=== PATIENT | female | born 1955 | race Caucasian/White ===

== ENCOUNTER 2017-03-23 17:17 | Emergency (ER) | payer OTHER ==
[~2017-03-23] VITALS: Ht 149.9 cm; Wt 54.4 kg
[2017-03-23 18:16] LABS: ABSOLUTE BASOPHIL COUNT 0 /CUMM (0.0-0.2); ABSOLUTE EOSINOPHIL COUNT 0.1 /CUMM (0.0-0.7); ABSOLUTE GRANULOCYTE CT 4.6 /CUMM (1.4-6.5); ABSOLUTE LYMPH COUNT 1.4 /CUMM (1.2-3.4); ABSOLUTE MONOCYTE COUNT 0.5 /CUMM (0.10-0.60); BASOPHIL % 0.6 % (0.0-2.0); EOSINOPHIL % 2.2 % (0-5); GRANULOCYTE % 69.7 % (42.2-75.2); HEMATOCRIT 37.5 % (37-47); MEAN CORPUSCULAR HGB 28.9 PG (27.0-31.0); MEAN CORPUSCULAR HGB CONC 34.3 G/DL (33.0-37.0); MEAN CORPUSCULAR VOLUME 84.3 FL (81.0-99.0); MEAN PLATELET VOLUME 7.4 FL (7.4-10.4); PLATELET COUNT 358 /CUMM (130-400); RBC DISTRIBUTION WIDTH 14.1 % (11.5-14.5); RED BLOOD CELL CT 4.45 /CUMM (4.20-5.40); WHITE BLOOD CELL COUNT 6.6 /CUMM (4.8-10.8)
--- NOTE | 2017-03-23 19:30 | ED GI/GU/ABDOMINAL COMPLAINT ---
History of Present Illness General Chief Complaint: General Adult Stated Complaint: PT HAS NOT USE THE BATHROOM IN 4 DAYS Source: patient, family Exam Limitations: clinical condition Vital Signs & Intake/Output Vital Signs & Intake/Output Vital Signs Date Time Temp Pulse Resp B/P B/P Pulse O2 O2 Flow FiO2 Mean Ox Delivery Rate 03/23 1949 Room Air 03/23 1725 97.8 89 15 132/85 97 Room Air Room Air Allergies Coded Allergies: Penicillins (UNKNOWN 03/23/17) Triage Note: PT TO ED FOR C/C OF ABD PAIN AND CONSTIPATION. PT HAS NOT HAD BM IN FOUR DAYS. DENIES NAUSEA AND VOMITING. INCREASED URINATION FREQUENCY. PT TRIED SENNA, LAXATIVE AND MAG CITRATE WITHOUT RELIEF. Triage Nurses Notes Reviewed? yes ? N Is pt currently ? No Onset: Abrupt Duration: day(s): (4) Timing: recent history Quality/Severity: moderate, severe Location: generalized abdomen Activities at Onset: none Prior Abdominal Problems: similar symptoms No Modifying Factors: none Associated Symptoms: LOWER ABDOMINAL CRAMPING HPI: This is a 62-year-old female with history of cerebral aneurysm rupture in November who presents to the ER with family members for chief complaint of no bowel movement for the past 4 days. History of previous constipation. They've tried senna as well as magnesium citrate at home without relief. She feels pressure to go. No nausea or vomiting. No abdominal distention. She is still eating but has a diminished appetite. History of previous C-sections and gallbladder surgery but no history of previous small bowel obstructions. Denies any rectal pain. History is taken mainly from the family as patient has some difficulty giving full history. Past History Travel History Traveled to [place] past 21 day No Medical History Any Pertinent Medical History? 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 No Review of Systems Review of Systems Constitutional: Denies: chills, fever. EENTM: Reports: no symptoms. Respiratory: Denies: cough, short of breath. Cardiovascular: Denies: chest pain. GI: Reports: abdominal pain, constipation. Denies: bloating, diarrhea, nausea, vomiting. Genitourinary: Denies: discharge, dysuria, frequency, hematuria. Musculoskeletal: Reports: no symptoms. Skin: Reports: no symptoms. Neurological/Psychological: Reports: no symptoms. Hematologic/Endocrine: Denies: bruising, bleeding, polyuria, polydipsia. Immunologic/Allergic: Denies: splenectomy. All Other Systems: Reviewed and Negative Physical Exam Physical Exam General Appearance: well developed/nourished, alert, awake, anxious, mild distress Head: atraumatic, normal appearance Eyes: Bilateral: PERRL, EOMI. Ears, Nose, Throat, Mouth: hearing grossly normal, moist mucous membrane Neck: normal inspection, supple, full range of motion Respiratory: normal breath sounds, chest non-tender, no respiratory distress Cardiovascular: regular rate/rhythm Peripheral Pulses: 2+ radial (R), 2+ radial (L) Gastrointestinal: soft, non-tender, G TUBE IN PLACE Rectal: 2 EXTERNAL SOFT NON THROMBOSED HEMORRHOIDS BROWN SOFT GUIAC NEG STOOL IN VAULT Extremities: normal range of motion Neurologic/Psych: awake, alert, oriented x 3, ANXIOUS Core Measures ACS in differential dx? No Severe Sepsis Present: No Septic Shock Present: No Progress Differential Diagnosis: hemorrhoids, SBO, CONSTIPATION Plan of Care: Orders Procedure Date/time Status Add-on Test (ER Only) 03/23 1957 Active Enema 03/23 1939 Active CULTURE,URINE 03/23 1938 Active URINALYSIS 03/23 1730 Complete COMPREHENSIVE METABOLIC PANEL 03/23 1730 Complete CBC WITHOUT DIFFERENTIAL 03/23 1730 Complete Current Medications Sig/Tori Start time Last Medication Dose Stop Time Status Admin Polyethylene Glycol 1 GAL ONCE ONE 03/23 2215 UNVr (Golytely Liq 4000 03/23 2216 Ml) Laboratory Tests 03/23/171929: Urine Color YEL, Urine Clarity HAZY H, Urine pH 8.0, Ur Specific [place]offeen 1.015, Urine Protein TRACE H, Urine Ketones NEG, Urine Nitrite NEG, Urine Bilirubin NEG, Urine Urobilinogen 0.2, Ur Leukocyte Esterase MOD H, Ur Microscopic SEDIMENT EXAMINED, Urine RBC 1-3, Urine WBC 10-15 H, Ur Epithelial Cells MOD H , Urine Bacteria FEW H, Urine Hemoglobin TRACE-INTACT, Urine Glucose NEG 03/23/171756: Anion Gap 11, Estimated GFR > 60, BUN/Creatinine Ratio 10.0, Glucose 112 H, Calcium 9.6, Total Bilirubin 0.5, AST 15, ALT 31, Alkaline Phosphatase 78, Total Protein 6.7, Albumin 4.2, Globulin 2.5, Albumin/Globulin Ratio 1.7, CBC w Diff NO MAN DIFF REQ, RBC 4.45, MCV 84.3, MCH 28.9, RDW 14.1, MPV 7.4, Gran % 69.7, Lymphocytes % 20.5, Monocytes % 7.0, Eosinophils % 2.2, Basophils % 0.6, Absolute Granulocytes 4.6, Absolute Lymphocytes 1.4, Absolute Monocytes 0.5, Absolute Eosinophils 0.1, Absolute Basophils 0, PUBS MCHC 34.3 Microbiology 03/23 1938 URINE ROUT: Urine Culture - RECD 10:09 pm patient had fleet x 2 with some stool output. will send home with Medical Envelope bottle to start tomorrow. (NGUYEN BENDER,ASIA) Diagnostic Imaging: Viewed by Me: Radiology Read. Discussed w/RAD: Radiology Read. Radiology Impression: PATIENT: JERMAINE ROSE PRESENT AGE: 62 PATIENT ACCOUNT NO: [id number] : 54 LOCATION: [facility] ORDERING PHYSICIAN: ASIA CEDILLO MD SERVICE DATE: 03/23/17 EXAM TYPE: RAD - XRY -ABDOMEN-MULTIPLE VIEWS EXAMINATION: XR ABDOMEN MULTIPLE VIEWS CLINICAL INDICATION: No bowel movement for 4 days COMPARISON: None TECHNIQUE: AP supine and upright radiographs of the abdomen and pelvis FINDINGS: There are scattered air-fluid levels with no bowel dilatation to indicate obstruction. There is a PEG tube. Presumed ventriculoperitoneal shunt terminates in the right upper quadrant. Cholecystectomy clips. IMPRESSION: Scattered nonspecific air-fluid levels with no bowel dilatation to suggest obstruction. DICTATED BY: JULIO BELL MD DATE/TIME DICTATED:03/23/172029 SUSTAINABILITY COACH:GINA DATE/ TIME TRANSCRIBED:03/23/172029 CONFIDENTIAL, DO NOT COPY WITHOUT APPROPRIATE AUTHORIZATION. <Electronically signed in Other Vendor System> SIGNED BY: JULIO BELL MD 03/23/172053 Initial ED EKG: none Departure Departure Time of Disposition: 2206 Disposition: HOME OR SELF CARE Condition: Stable Clinical Impression Primary Impression: Constipation Referrals: MANUEL BENDER,RAMÓN Fajardo (PCP/Family) Additional Instructions: Drink 1 cup of the GoLYTELY every hour until you start to have good bowel movements. You do not need to finish the whole gallon. Call [phone] to follow up the results of your urine culture in 2 days. Return as needed. Please follow-up with your primary care doctor in the office. Departure Forms: Customer Survey General Discharge Information
--- NOTE | 2017-03-23 20:54 | RADIOLOGY REPORT ---
EXAMINATION: XR ABDOMEN MULTIPLE VIEWS CLINICAL INDICATION: No bowel movement for 4 days COMPARISON: None TECHNIQUE: AP supine and upright radiographs of the abdomen and pelvis FINDINGS: There are scattered air-fluid levels with no bowel dilatation to indicate obstruction. There is a PEG tube. Presumed ventriculoperitoneal shunt terminates in the right upper quadrant. Cholecystectomy clips. IMPRESSION: Scattered nonspecific air-fluid levels with no bowel dilatation to suggest obstruction.
[2017-03-23 22:31] VITALS: BP 148/81
== END 2017-03-23 22:33 ==
LOC: ERH 17:17
PROVIDERS: Emergency Medicine
DX: K59.00 Constipation, unspecified (principal); R10.30 Lower abdominal pain, unspecified
CPT/HCPCS: 74020; 81001; 87086